=== PATIENT | female | born 1995 | race Caucasian/White ===

== ENCOUNTER 2024-10-07 17:30 | Inpatient (IN) | payer OTHER, SELFPAY ==
[2024-10-07] VITALS (44 sets, daily range): BP systolic 118–163; BP diastolic 62–104; PULSE 77–118; TEMP 36.6–37; O2SAT 97–99; BMI 28.4
--- NOTE | ~2024-10-07 | US_ITS ---
EXAMINATION: US pelvic limited DATE: 10/08/2024 09:21 INDICATION: Vaginal bleeding with concern for retained products of conception TECHNIQUE: Multiple transabdominal sonographic images of the pelvis were obtained. COMPARISON: None. FINDINGS: The uterus measures >19.5 cm in length and measures 9.4 x 13.4 cm. The endometrial complex and is ma rkedly thickened measuring up to 4.7 cm caudally at the lower uterine segment and caudal aspect of th e uterine body with heterogeneous internal echogenicity with coarsened echotexture without evident in ternal vascular flow on color Doppler. The endometrial complex appears less thickened at the fundus b ut in regions particularly on the anterior fundus with ill-defined margins. The bilateral ovaries are not visualized. There is a small amount of anechoic free fluid in the pelvis. IMPRESSION: 1. Enlarged post gravid uterus with thickened endometrial complex containing material with heterogene ous echogenicity but without internal vascular flow on color Doppler most likely representing clot al though differential would include retained products of conception. Reviewed, dictated and finalized at location A. IMPRESSION: 1. Enlarged post gravid uterus with thickened endometrial complex containing ma terial with heterogeneous echogenicity but without internal vascular flow on co willi Doppler most likely representing clot although differential would include r etained products of conception.
[2024-10-07 18:46] LABS: OBXCEM ROM Plus Positive (Negative)
--- NOTE | 2024-10-07 19:09 | LDADM ---
This patient, Elza Justice, was admitted to Labor/Delivery/Recovery 107 on 10/07/24 at 17:30. Plans for labor, pain management and were discussed with patient. Patient/family oriented to hospital policies and general routines including ID bracelet, bed and alarms, visiting hours, pain management, procedures, bathroom and other care routines, personal items, smoking policy, room service/diet and guest tray routines, security routines, and visiting hours. Patient/Family are encouraged to report perceived risks to care and to ask questions if they do not understand what they are told or what they should do. See OBIX for further documentation.
[2024-10-07 19:12] LABS: Hematocrit 34.3 % (37.0-47.0); Hemoglobin 12.1 g/dL (12.0-15.0); Immature Granulocyte Percent A 0.9 % (0-0.5); Lymphocytes Absolute Auto 1.91 K/mm3 (0.9-3.2); Mean Corpuscular HGB Conc 35.3 g/dl (32-36); Mean Corpuscular Hemoglobin 34.2 pg (26-34); Mean Corpuscular Volume 96.9 fl (80-100); Nucleated Red Blood Cells Absolute Auto 0.000 K/mm3 (0.0-0.012); Nucleated Red Blood Cells Perc 0.0 % (0.0-0.2); Platelet Count Result 157 k/mm3 (150-375); Red Blood Count 3.54 M/mm3 (4.2-5.4); White Blood Count 7.6 K/mm3 (4.5-10.0)
[2024-10-07] MEDS: AMPICILLIN SODIUM 2 GM in SODIUM CHLORIDE 0.9% IV 100 ML 200 ML IVPB (20:04)
[2024-10-07] MEDS: LACTATED RINGERS 1,000 ML 125 ML IV CONT ×2 (20:04→22:52)
[2024-10-07 20:07] LABS: HIV 1/2 Ab P24 Ag Result Negative (Negative)
--- NOTE | 2024-10-07 20:08 | PM.IMHP ---
H&P: HPI History of Present Illness Date/Time: 10/07/24 20:08 Chief Complaint: Rupture membranes Narrative: 28-year-old 3 para 0 whose last menstrual period was 02/05/2024, EDC is 11/11/2024 presents at 35 and half weeks gestation ruptured membranes. Group B strep screen is unknown. She had a normal diabetic screen in the had been uncomplicated prior Review of Systems Review of Systems: All systems reviewed & are unremarkable except as noted in HPI and below PMFSH Social History Social History Smoking status: Never smoker Second hand tobacco smoke exposure: No Do You Feel Safe in your Home?: Yes Lack of Transportation: No Lack of Food: Never True Current Housing: I Have Housing Concerned About Future Housing: No Difficulty Paying Gas/Electric Bills: No Difficulty Paying for Meds: No Currently Unemployed: YES Education: Master's Degree or Higher Difficulty w/ Childcare or Family Care: No Spiritual care concerns: No Meds Home Medications and Allergies Allergies Allergy/AdvReac Type Severity Reaction Status Date / Time No Known Allergies Allergy Verified 10/07/24 19:40 Vital Signs Vital Signs - 24 hr 10/07/24 18:26 10/07/24 18:30 10/07/24 18:45 Pulse Rate 116 H 87 102 H Blood Pressure 139/92 H 134/82 139/82 10/07/24 19:00 10/07/24 19:15 10/07/24 19:31 Pulse Rate 96 91 83 Blood Pressure 128/78 124/79 124/75 10/07/24 19:45 Pulse Rate 103 H Blood Pressure 132/92 H Exam Const: General: cooperative, healthy appearing and comfortable Nutritional Appearance: average body habitus Orientation/consciousness: oriented to person, oriented to place and oriented to time HENMT: Head: normal to inspection Resp: Effort & Inspection: normal respiratory effort Cardio: Rate: regular rate Rhythm: regular rhythm Heart sounds: S1 normal heart sound present and S2 normal heart sound present GI: Inspection: normal to inspection (Soft gravid uterus) : External Female Exam: normal external appearance Speculum Exam - Vagina: normal appearance of the vagina Speculum Exam - Cervix: normal appearance of the cervix (Cervix 1 thick. Gross rupture of fluid. FHTs reassuring) H&P: Results Labs Labs: Short CBC 10/07/24 Range/Units 19:06 WBC 7.6 (4.5-10.0) K/mm3 Hgb 12.1 (12.0-15.0) g/dL Hct 34.3 L (37.0-47.0) % Plt Count 157 (150-375) k/mm3 Assessment and Plan Assessment and plan (1) premature rupture of membranes: Code(s): O42.919 - premature rupture of membranes, unspecified as to length of time between rupture and onset of labor, unspecified trimester Status: Acute Plan Spontaneous vaginal delivery expected. She will undergo group B strep prophylaxis for unknown state. She is an epidural candidate chart calculator will be made aware of her state Pitocin has begun
[2024-10-07] MEDS: OXYTOCIN 30 UNITS/NS 500 ML 30 UNITS/500 ML BAG IV CONT (20:10)
[2024-10-07 20:12] LABS: Syphilis IgG/IgM Antibody Non-Reactive (Nonreactive)
--- NOTE | 2024-10-07 22:25 | P.PNAN_ITS ---
Anes - Eval Pre Procedure Procedure: labor epidural Date/Time: 10/07/24 22:25 Surgeon: myrna Preop Diagnosis: pain during labor Pre Op Diagnosis: labor Patient Data Age: 28 Gender: F Height: 1.68 m Weight: 80 kg Last Vital Signs Temp 37.0 C 10/07/24 22:00 Pulse 96 10/07/24 22:15 BP 129/82 10/07/24 22:15 Pulse Ox 99 10/07/24 22:23 Allergies Allergy/AdvReac Type Severity Reaction Status Date / Time No Known Allergies Allergy Verified 10/07/24 19:40 Laboratory Tests 10/07/24 10/07/24 17:50 19:06 WBC 7.6 K/mm3 (4.5-10.0) RBC 3.54 L M/mm3 (4.2-5.4) Hgb 12.1 g/dL (12.0-15.0) Hct 34.3 L % (37.0-47.0) MCV 96.9 fl (80-100) MCH 34.2 H pg (26-34) MCHC 35.3 g/dl (32-36) RDW 11.9 % (11.5-14.5) Plt Count 157 k/mm3 (150-375) MPV 12.4 H fl (7.4-10.4) Immature Gran % (Auto) 0.9 H % (0-0.5) Neut % (Auto) 64.8 % (45.5-73.1) Lymph % (Auto) 25.1 % (18.3-44.2) [place] % (Auto) 8.4 % (2.6-8.5) Eos % (Auto) 0.4 % (0-4.4) Baso % (Auto) 0.4 % (0.2-1.2) Lymph # (Auto) 1.91 K/mm3 (0.9-3.2) [place] # (Auto) 0.6 K/mm3 (0.1-0.6) Eos # (Auto) 0.0 K/mm3 (0-0.3) Baso # (Auto) 0.0 K/mm3 (0.0-0.1) Abs Immat Gran (auto) 0.07 H K/mm3 (0.00-0.031) Absolute Neuts (auto) 4.9 K/mm3 (1.3-6.7) Absolute Nucleated RBC 0.000 K/mm3 (0.0-0.012) Nucleated RBC % 0.0 % (0.0-0.2) Membranes Rupture Rom plus positive (Negative) Syphilis IgG/IgM Ab Non-reactive (Nonreactive) HIV 1&2 Ab/P24 Ag 4thGn Negative (Negative) Blood Type A Positive Antibody Screen Negative Patient hx anesthesia problems: none Family hx anesthesia problems: none Results Review: All pre-operative results and documents have been reviewed as part of the pre- operative evaluation. [facility] Past Medical History Medical History (Updated 10/07/24 @ 22:25 by Malia Camejo CRNA) IUP (intrauterine ), incidental Social History Social History Smoking status: Never smoker Second hand tobacco smoke exposure: No Do You Feel Safe in your Home?: Yes Lack of Transportation: No Lack of Food: Never True Current Housing: I Have Housing Concerned About Future Housing: No Difficulty Paying Gas/Electric Bills: No Difficulty Paying for Meds: No Currently Unemployed: YES Education: Master's Degree or Higher Difficulty w/ Childcare or Family Care: No Spiritual care concerns: No Exam Day of Procedure 10/07/24 22:25
[2024-10-07] MEDS: AMPICILLIN SODIUM 1 GM in SODIUM CHLORIDE 0.9% IV 50 ML 100 ML IVPB (23:30)
[2024-10-08] VITALS (175 sets, daily range): BP systolic 73–167; BP diastolic 32–139; PULSE 69–298; RESP 13–25; TEMP 36.8–39.2; O2SAT 75–100
[2024-10-08] MEDS: METHYLERGONOVINE MALEATE 0.2 MG/ML VIAL IM ×2 (01:36→05:15)
--- NOTE | 2024-10-08 01:43 | P.PCNOB_ITS ---
OB - Vaginal Delivery Note Procedure Delivery date: 10/08/24 Events: Premature Rupture of Membranes Induction method: None Delivery augmentation: Pitocin Delivery monitor: External FHT and External Uterine Episiotomy description: None Laceration Description: None Specimen: No Quantitative Blood Loss (ml): 262 Anesthesia type: Epidural Disposition: Floor Complications: No immediate complications Narrative: Patient was admitted with spontaneous rupture membranes at 35 weeks gestation. had been uncomplicated prior she was complete, she pushed delivered head spontaneously in the ROQUE position anterior posterior shoulder delivered spontaneously. Cord clamped and cut and placed in the warmer given Apgars of 9 [id number]. Cord blood was drawn. Placenta delivered intact spontaneously. 20cc of Pitocin placed IV to help firm the uterus. No tears or lacerations were noted there was some oozy bleeding she received a dose of Methergine followed by Cytotec 1000. [place] Baby Date of : 10/08/24 Time of : 01:23 Gestational Age by Date: 33 gender: Female Weight (pounds): 5 Weight (ounces): 4 presentation: vertex position: Right Occiput Anterior Placenta delivery description: Spontaneous Cord Vessel Description: 3 Vessels score one minute: 9 score five minutes: 9
--- NOTE | 2024-10-08 01:46 | P.DS_ITS ---
DS: Admitting Diagnosis Discharge Date 10/10/2024 Admitting Diagnosis rupture membranes DS: Discharge Diagnosis Discharge Diagnosis (1) premature rupture of membranes: Code(s): O42.919 - premature rupture of membranes, unspecified as to length of time between rupture and onset of labor, unspecified trimester Status: Acute (2) IUP (intrauterine ), incidental: Code(s): Z33.1 - state, incidental Status: Acute (3) PPH ( hemorrhage): Code(s): O72.1 - Other immediate hemorrhage Status: Acute (4) Anemia: Code(s): D64.9 - Anemia, unspecified Status: Acute DS: Summary Hospital Course Reason for hospitalization: Patient was admitted at 35 weeks gestation with spontaneous rupture membranes prior to term and underwent spontaneous vaginal delivery on 10/09/2019. The patient underwent suction dilatation curettage immediately secondary to heavy bleeding received 2units of blood Hospital Course: Patient's hospital course unremarkable. She remained afebrile she was up, voiding without difficulty, eating regular diet, ambulating, and generally without complaints. Time Spent with Patient Time attestation: Total time spent providing and/or coordinating discharge services: Exam Const: General: cooperative, healthy appearing and comfortable Nutritional Appearance: average body habitus Orientation/consciousness: oriented to person, oriented to place and oriented to time HENMT: Head: normal to inspection Resp: Effort & Inspection: normal respiratory effort Cardio: Rate: regular rate Rhythm: regular rhythm Heart sounds: S1 normal heart sound present and S2 normal heart sound present GI: Inspection: normal to inspection (Soft gravid uterus) : External Female Exam: normal external appearance Speculum Exam - Vagina: normal appearance of the vagina Speculum Exam - Cervix: normal appearance of the cervix (Cervix 1 thick. Gross rupture of fluid. FHTs reassur ing) DS: Data Data Completed and Pending Labs on day of discharge: Labs from last 24 hours 10/07/24 10/07/24 19:06 17:50 WBC 7.6 RBC 3.54 L Hgb 12.1 Hct 34.3 L MCV 96.9 MCH 34.2 H MCHC 35.3 RDW 11.9 Plt Count 157 MPV 12.4 H Immature Gran % (Auto) 0.9 H Neut % (Auto) 64.8 Lymph % (Auto) 25.1 [place] % (Auto) 8.4 Eos % (Auto) 0.4 Baso % (Auto) 0.4 Lymph # (Auto) 1.91 [place] # (Auto) 0.6 Eos # (Auto) 0.0 Baso # (Auto) 0.0 Abs Immat Gran (auto) 0.07 H Absolute Neuts (auto) 4.9 Absolute Nucleated RBC 0.000 Nucleated RBC % 0.0 Membranes Rupture Rom plus positive Syphilis IgG/IgM Ab Non-reactive HIV 1&2 Ab/P24 Ag 4thGn Negative Blood Type A Positive Antibody Screen Negative Discharge Plan Discharge Attending physician on discharge: Raphael Bailey Discharging Clinician: Raphael Bailey Patient Disposition: Home Activity: may shower and pelvic rest Diet: heart healthy Wound Care Instructions: follow printed instructions Patient Instructions: Antibiotic Form Patient Language: Hebrew Stand Alone Forms: General Discharge Information Follow-up/Referrals: Raphael Bailey MD [Physician] - Date of admission: 10/07/24 17:30 Primary Care Provider: UNKNOWN,DOCTOR Admitting Provider: Raphael Bailey Attending physician on admission: Raphael Bailey Condition: Stable
[2024-10-08] MEDS: OXYTOCIN 30 UNITS/NS 500 ML 30 UNITS/500 ML BAG 999 UNITS IV CONT (01:55)
[2024-10-08] MEDS: LACTATED RINGERS 1,000 ML 999 ML IV CONT (01:56)
[2024-10-08] MEDS: CARBOPROST TROMETHAMINE 250 MCG/ML AMPUL IM (01:58)
[2024-10-08] MEDS: ONDANSETRON INJ 4 MG/2 ML VIAL IV PUSH (02:05)
[2024-10-08 02:11] LABS: Hematocrit 32.9 % (37.0-47.0); Hemoglobin 11.4 g/dL (12.0-15.0); Immature Granulocyte Percent A 0.8 % (0-0.5); Lymphocytes Absolute Auto 1.81 K/mm3 (0.9-3.2); Mean Corpuscular HGB Conc 34.7 g/dl (32-36); Mean Corpuscular Hemoglobin 33.9 pg (26-34); Mean Corpuscular Volume 97.9 fl (80-100); Nucleated Red Blood Cells Absolute Auto 0.000 K/mm3 (0.0-0.012); Nucleated Red Blood Cells Perc 0.0 % (0.0-0.2); Platelet Count Result 145 k/mm3 (150-375); Red Blood Count 3.36 M/mm3 (4.2-5.4); White Blood Count 12.6 K/mm3 (4.5-10.0)
[2024-10-08 02:22] LABS: Alanine Aminotransferase 24 U/L (6-35); Albumin Level 3.1 g/dL (3.5-5.1); Alkaline Phosphatase 101 U/L (38-126); Anion Gap 7 mmol/L (4-12); Aspartate Amino Transferase 31 U/L (14-36); Bilirubin,Total 0.4 mg/dL (0.2-1.3); Blood Urea Nitrogen 12 mg/dL (7-17); Calcium 8.3 mg/dL (8.4-10.2); Carbon Dioxide 18 mmol/L (22-30); Chloride 107 mmol/L (98-107); Estimated CRCL calculation 94 ml/min; Estimated Glomerular Filt Rate > 60; Glucose 87 mg/dL (65-110); Potassium 3.7 mmol/L (3.4-5.0); Sodium 132 mmol/L (137-145); Total Protein 5.6 g/dL (6.3-8.2)
--- NOTE | 2024-10-08 02:22 | WPDHPUPDATE1 ---
History and Physical Update Update Date/Time: 10/08/24 02:22 History and Physical has been reviewed, including an updated exam of the patient. There are NO changes in the patient's condition. Risks, benefits, and alternatives have been discussed and questions answered. Patient agrees to proceed with procedure. Patient said episode with excessive bleeding. She has been treated with Methergine side attack and Hemabate ultrasound shows what appears to retained placenta. Packing has been placed in blood losses 1355 at this point. She will undergo exam under anesthesia and suction dilatation curettage 2units of blood been or stat hemoglobin Monocryl and coags pending.
[2024-10-08 02:23] LABS: INR 1.0; Prothrombin Time 12.7 Seconds (11.1-14.7)
[2024-10-08 02:24] LABS: Fibrinogen 273 mg/dl (215-510); Partial Thromboplastin Time 24.8 Seconds (22.3-36.8)
[2024-10-08] MEDS: OXYTOCIN 30 UNITS/NS 500 ML 30 UNITS/500 ML BAG 125 UNITS IV CONT (02:26)
--- NOTE | 2024-10-08 02:46 | P.PNAN_ITS ---
Anes - Eval Pre Procedure Procedure: Operation Date: 10/08/24 03:00 Proposed Procedures p D&C Suction and Sharp - Raphael Brooks MD Date/Time: 10/08/24 02:46 Pre Op Diagnosis: labor Patient Data Age: 28 Gender: F Height: 1.68 m Weight: 80 kg Last Vital Signs Temp 36.8 C 10/08/24 02:38 Pulse 154 H 10/08/24 02:43 Resp 25 H 10/08/24 02:38 BP 108/47 L 10/08/24 02:43 Pulse Ox 81 L 10/08/24 02:46 Allergies Allergy/AdvReac Type Severity Reaction Status Date / Time No Known Allergies Allergy Verified 10/07/24 19:40 Laboratory Tests 10/07/24 10/07/24 10/08/24 17:50 19:06 01:59 WBC 7.6 K/mm3 12.6 H K/mm3 (4.5-10.0) (4.5-10.0) RBC 3.54 L M/mm3 3.36 L M/mm3 (4.2-5.4) (4.2-5.4) Hgb 12.1 g/dL 11.4 L g/dL (12.0-15.0) (12.0-15.0) Hct 34.3 L % 32.9 L % (37.0-47.0) (37.0-47.0) MCV 96.9 fl 97.9 fl (80-100) (80-100) MCH 34.2 H pg 33.9 pg (26-34) (26-34) MCHC 35.3 g/dl 34.7 g/dl (32-36) (32-36) RDW 11.9 % 11.8 % (11.5-14.5) (11.5-14.5) Plt Count 157 k/mm3 145 L k/mm3 (150-375) (150-375) MPV 12.4 H fl 12.0 H fl (7.4-10.4) (7.4-10.4) Immature Gran % (Auto) 0.9 H % 0.8 H % (0-0.5) (0-0.5) Neut % (Auto) 64.8 % 78.4 H % (45.5-73.1) (45.5-73.1) Lymph % (Auto) 25.1 % 14.4 L % (18.3-44.2) (18.3-44.2) [place] % (Auto) 8.4 % 5.9 % (2.6-8.5) (2.6-8.5) Eos % (Auto) 0.4 % 0.2 % (0-4.4) (0-4.4) Baso % (Auto) 0.4 % 0.3 % (0.2-1.2) (0.2-1.2) Lymph # (Auto) 1.91 K/mm3 1.81 K/mm3 (0.9-3.2) (0.9-3.2) [place] # (Auto) 0.6 K/mm3 0.7 H K/mm3 (0.1-0.6) (0.1-0.6) Eos # (Auto) 0.0 K/mm3 0.0 K/mm3 (0-0.3) (0-0.3) Baso # (Auto) 0.0 K/mm3 0.0 K/mm3 (0.0-0.1) (0.0-0.1) Abs Immat Gran (auto) 0.07 H K/mm3 0.10 H K/mm3 (0.00-0.031) (0.00-0.031) Absolute Neuts (auto) 4.9 K/mm3 9.9 H K/mm3 (1.3-6.7) (1.3-6.7) Absolute Nucleated RBC 0.000 K/mm3 0.000 K/mm3 (0.0-0.012) (0.0-0.012) Nucleated RBC % 0.0 % 0.0 % (0.0-0.2) (0.0-0.2) PT 12.7 Seconds (11.1-14.7) INR 1.0 APTT 24.8 Seconds (22.3-36.8) Fibrinogen 273 mg/dl (215-510) D-Dimer 1.31 H ug/mL (<0.48) Sodium 132 L mmol/L (137-145) Potassium 3.7 mmol/L (3.4-5.0) Chloride 107 mmol/L (98-107) Carbon Dioxide 18 L mmol/L (22-30) Anion Gap 7 mmol/L (4-12) BUN 12 mg/dL (7-17) Creatinine 0.81 mg/dL (0.7-1.0) Estim Creat Clear Calc 94 ml/min Estimated GFR > 60 (59 - ) Glucose 87 mg/dL (65-110) Calcium 8.3 L mg/dL (8.4-10.2) Total Bilirubin 0.4 mg/dL (0.2-1.3) AST 31 U/L (14-36) ALT 24 U/L (6-35) Alkaline Phosphatase 101 U/L (38-126) Total Protein 5.6 L g/dL (6.3-8.2) Albumin 3.1 L g/dL (3.5-5.1) Membranes Rupture Rom plus positive (Negative) Syphilis IgG/IgM Ab Non-reactive (Nonreactive) HIV 1&2 Ab/P24 Ag 4thGn Negative (Negative) Blood Type A Positive Antibody Screen Negative Crossmatch See Detail Patient hx anesthesia problems: none Family hx anesthesia problems: none Results Review: All pre-operative results and documents have been reviewed as part of the pre- operative evaluation. [facility] Past Medical History Medical History (Updated 10/07/24 @ 22:25 by Malia Camejo CRNA) IUP (intrauterine ), incidental Social History Social History Smoking status: Never smoker Second hand tobacco smoke exposure: No Do You Feel Safe in your Home?: Yes Lack of Transportation: No Lack of Food: Never True Current Housing: I Have Housing Concerned About Future Housing: No Difficulty Paying Gas/Electric Bills: No Difficulty Paying for Meds: No Currently Unemployed: YES Education: Master's Degree or Higher Difficulty w/ Childcare or Family Care: No Spiritual care concerns: No Exam Day of Procedure 10/08/24 02:46 Patient weight: overweight Heart: regular rate and rhythm Lungs: clear to auscultation Airway: Mallampati scale class II Neurological: alert and oriented
--- NOTE | 2024-10-08 03:28 | W.PM.PROC2 ---
Procedure Note - Detailed Date of Procedure 10/08/24 Pre-op Diagnosis bleeding r Post-op Diagnosis Same Procedure Performed Exam under anesthesia with suction dilatation curettage Surgeon Raphael Brooks MD Anesthesia MAC Indications Small amount of retained placenta with bleeding Findings Tissue consistent with retained placenta Description of Procedure The patient had undergone spontaneous vaginal delivery and had more than 1500cc of blood loss. After obtaining informed consent she was taken back prepped and draped in normal sterile fashion placed in the dorsal lithotomy position. Under heavy sedation speculum was placed in the vagina the cervix was traversed over 360? and no tear seen a 14. Suction curette was then passed to the uterus small pieces of placenta removed. The uterus responded appropriately and was firm and bleeding ceased. Blood loss was estimated 100cc. The vagina was packed and she was watched for 12minutes post packing and no bleeding was seen and around the not packing. Urine output was beginning to the occur. She received 1unit of blood is receiving a 2nd unit as dictation is being undertaken. All sponge, needle, instrument counts were correct. There were no immediate complications Estimated Blood Loss 100 Drains No Packing No Pathology Yes Complications No immediate complications Condition Stable Disposition PACU
[2024-10-08] MEDS: LACTATED RINGERS 1,000 ML 30 ML IV CONT ×2 (03:30→07:51)
--- NOTE | 2024-10-08 03:33 | S_PTH ---
PATIENT: Elza Justice LOC: [id number] U#:[id number] AGE/SX: 28/F ROOM: 290 RE10/07/[address]: Raphael Brooks MD : 1995 BED: 00 DIS: 10/10/2024 SPEC #: [id number] RECD: 10/10/24 08:08 STATUS: MALENA REQ #: [id number] ALFONSO: 10/08/24 03:[address]: Raphael Bailey DEPT: [facility] Surgical RECD BY: Francisco Wisdom ENTERED: 10/10/24 08:08 SP TYPE: Surgical OTHR DR: UNKNOWN,DOCTOR Tissues: A - Placenta Procedures: Hematoxylin and Eosin Stain Gross and Microscopic Level 5
[2024-10-08 05:32] LABS: Hematocrit 27.2 % (37.0-47.0); Hemoglobin 9.1 g/dL (12.0-15.0)
--- NOTE | 2024-10-08 06:20 | P.PNOB_ITS ---
OB - PN: Subj Subjective Date/time seen: 10/08/24 06:20 Patient comments: no complaints, pain well controlled and other (bleeding still moderate) baby status: doing well OB - PN: Obj Data Labs 10/08/24 05:18 10/08/24 01:59 Labs: Laboratory Results - last 24 hr 10/07/24 10/07/24 10/08/24 17:50 19:06 01:59 WBC 7.6 12.6 H RBC 3.54 L 3.36 L Hgb 12.1 11.4 L Hct 34.3 L 32.9 L MCV 96.9 97.9 MCH 34.2 H 33.9 MCHC 35.3 34.7 RDW 11.9 11.8 Plt Count 157 145 L MPV 12.4 H 12.0 H Immature Gran % (Auto) 0.9 H 0.8 H Neut % (Auto) 64.8 78.4 H Lymph % (Auto) 25.1 14.4 L [place] % (Auto) 8.4 5.9 Eos % (Auto) 0.4 0.2 Baso % (Auto) 0.4 0.3 Lymph # (Auto) 1.91 1.81 [place] # (Auto) 0.6 0.7 H Eos # (Auto) 0.0 0.0 Baso # (Auto) 0.0 0.0 Abs Immat Gran (auto) 0.07 H 0.10 H Absolute Neuts (auto) 4.9 9.9 H Absolute Nucleated RBC 0.000 0.000 Nucleated RBC % 0.0 0.0 PT 12.7 INR 1.0 APTT 24.8 Fibrinogen 273 D-Dimer 1.31 H Sodium 132 L Potassium 3.7 Chloride 107 Carbon Dioxide 18 L Anion Gap 7 BUN 12 Creatinine 0.81 Estim Creat Clear Calc 94 Estimated GFR > 60 Glucose 87 Calcium 8.3 L Total Bilirubin 0.4 AST 31 ALT 24 Alkaline Phosphatase 101 Total Protein 5.6 L Albumin 3.1 L Membranes Rupture Rom plus positive Syphilis IgG/IgM Ab Non-reactive HIV 1&2 Ab/P24 Ag 4thGn Negative Blood Type A Positive Antibody Screen Negative Crossmatch See Detail 10/08/24 05:18 WBC RBC Hgb 9.1 L Hct 27.2 L MCV MCH MCHC RDW Plt Count MPV Immature Gran % (Auto) Neut % (Auto) Lymph % (Auto) [place] % (Auto) Eos % (Auto) Baso % (Auto) Lymph # (Auto) [place] # (Auto) Eos # (Auto) Baso # (Auto) Abs Immat Gran (auto) Absolute Neuts (auto) Absolute Nucleated RBC Nucleated RBC % PT INR APTT Fibrinogen D-Dimer Sodium Potassium Chloride Carbon Dioxide Anion Gap BUN Creatinine Estim Creat Clear Calc Estimated GFR Glucose Calcium Total Bilirubin AST ALT Alkaline Phosphatase Total Protein Albumin Membranes Rupture Syphilis IgG/IgM Ab HIV 1&2 Ab/P24 Ag 4thGn Blood Type Antibody Screen Crossmatch OB - PN A/P Assessment and Plan (1) PPH ( hemorrhage): Code(s): O72.1 - Other immediate hemorrhage Status: Acute Plan check us this am Time Spent With Patient Time: Total time spent is greater than 50% in coordination of care (as documented) at patient's floor/unit and/or counseling patient: Review of Systems 2 Review of Systems: All systems reviewed & are unremarkable except as noted in HPI and below Exam 2 Const: General: cooperative, healthy appearing and comfortable Nutritional Appearance: average body habitus Orientation/consciousness: oriented to person, oriented to place and oriented to time HENMT: Head: normal to inspection Resp: Effort & Inspection: normal respiratory effort Cardio: Rate: regular rate Rhythm: regular rhythm Heart sounds: S1 normal heart sound present and S2 normal heart sound present GI: Inspection: normal to inspection (Soft gravid uterus) : External Female Exam: normal external appearance Speculum Exam - Vagina: normal appearance of the vagina Speculum Exam - Cervix: normal appearance of the cervix (Cervix 1 thick. Gross rupture of fluid. FHTs reassuring)
--- NOTE | 2024-10-08 07:00 | PC.NURSE ---
TOTAL QBL ENTERED INCORRECTLY- TOTAL AMOUNT 1670 ML FOR VAGINAL DELIVERY AND RECOVERY PERIOD.
--- NOTE | 2024-10-08 09:30 | PC.NURSE ---
Patient requested assistance. Baby breastfed on the right side for 20 minutes about 2 hours ago. A glucose was taken before this feeding attempt and was WNL. Baby was awakened with talking and position change. She sticks her tongue out and cries. We attempted in a laid back position on the left breast. Baby does not root at the breast or make any attempts to open her mouth and latch. She does not lick or nuzzle the nipple. After about 10 minutes of trying, we switched to the right breast in a cradle hold. Mom has a small scab on the right nipple face, most likely from a shallow latch at the last feeding. Baby made one attempt to latch and suckled about 3 times before holding the nipple in her mouth and refusing to suck. Baby cries when stimulated and then instantly returns to a deep sleep state. Encouraged mother to hold baby skin to skin and to try again within an hour or if baby shows feeding cues. Infant is late and will most likely need an ineffective feeding plan started sometime today.
[2024-10-08] MEDS: IBUPROFEN 600 MG TABLET PO ×3 (10:25→23:45)
[2024-10-08 12:17] LABS: Hematocrit 25.5 % (37.0-47.0); Hemoglobin 8.7 g/dL (12.0-15.0)
[2024-10-08] MEDS: WITCH HAZEL 40 PADS 1 PAD TOPICAL (18:30)
[2024-10-08] MEDS: BENZOCAINE 20% AER SPR (*SP) 56 GM CAN 1 SPRAY TOPICAL (18:30)
[2024-10-08] MEDS: ACETAMINOPHEN 325 MG TABLET 650 MG PO (23:45)
[2024-10-09 05:04] LABS: Hematocrit 22.0 % (37.0-47.0); Hemoglobin 7.2 g/dL (12.0-15.0)
[2024-10-09 05:16] VITALS: BP 94/57; PULSE 59; RESP 14; TEMP 36.7; O2SAT 100
--- NOTE | 2024-10-09 07:21 | P.PNOB_ITS ---
OB - PN: Subj Subjective Date/time seen: 10/09/24 07:21 Patient comments: no complaints, pain well controlled and tolerating diet [place] baby status: doing well OB - PN: Obj Data Labs 10/09/24 04:49 10/08/24 01:59 Labs: Laboratory Results - last 24 hr 10/08/24 10/09/24 12:09 04:49 Hgb 8.7 L 7.2 L Hct 25.5 L 22.0 L Imaging Radiologist's impression: Impressions Pelvis Ultrasound 10/08/24 09:22 IMPRESSION: 1. Enlarged post gravid uterus with thickened endometrial complex containing material with heterogeneous echogenicity but without internal vascular flow on color Doppler most likely representing clot although differential would include retained products of conception. OB - PN A/P Assessment and Plan (1) premature rupture of membranes: Code(s): O42.919 - premature rupture of membranes, unspecified as to length of time between rupture and onset of labor, unspecified trimester Status: Acute (2) PPH ( hemorrhage): Code(s): O72.1 - Other immediate hemorrhage Status: Acute (3) Anemia: Code(s): D64.9 - Anemia, unspecified Status: Acute Plan continue iron Time Spent With Patient Time: Total time spent is greater than 50% in coordination of care (as documented) at patient's floor/unit and/or counseling patient: Review of Systems 2 Review of Systems: All systems reviewed & are unremarkable except as noted in HPI and below Exam 2 Const: General: cooperative, healthy appearing and comfortable Nutritional Appearance: average body habitus Orientation/consciousness: oriented to person, oriented to place and oriented to time HENMT: Head: normal to inspection Resp: Effort & Inspection: normal respiratory effort Cardio: Rate: regular rate Rhythm: regular rhythm Heart sounds: S1 normal heart sound present and S2 normal heart sound present GI: Inspection: normal to inspection (Soft gravid uterus) : External Female Exam: normal external appearance Speculum Exam - Vagina: normal appearance of the vagina Speculum Exam - Cervix: normal appearance of the cervix (Cervix 1 thick. Gross rupture of fluid. FHTs reassuring)
--- NOTE | 2024-10-09 09:54 | WPDANESPN ---
Anes - Prog Note Post-Op Date/Time: 10/09/24 09:54 Cardiovascular status: normal Respiratory status: normal Airway patency: baseline Mental status: baseline Post-Op hydration status: normal Vital Signs: Last Vital Signs Temp 36.7 C 10/09/24 05:16 Pulse 59 L 10/09/24 05:16 Resp 14 10/09/24 05:16 BP 94/57 L 10/09/24 05:16 Pulse Ox 100 10/09/24 05:16 O2 Del Method Room Air 10/08/24 04:30 O2 Flow Rate 10 10/08/24 03:45 Pain Score (VAS): 1 I/O: Intake & Output 10/08/24 10/09/24 10/09/24 23:59 07:59 15:59 Intake Total 350 Output Total 1400 Balance -1050 Laboratory Tests 10/09/24 04:49 10/08/24 01:59 10/08/24 10/09/24 12:09 04:49 Hgb 8.7 L 7.2 L Hct 25.5 L 22.0 L Post-procedural complaints: none Patient Feedback: Patient satisfied with anesthetic care.
[2024-10-09 10:00] VITALS: BP 123/71; PULSE 95; RESP 16; TEMP 36.9; O2SAT 98
[2024-10-09] MEDS: ACETAMINOPHEN 325 MG TABLET 650 MG PO ×3 (10:41→23:20)
[2024-10-09] MEDS: MULTIVIT/MIN/PREN/FOL AC/IRON TABLET 1 TAB PO (10:42)
[2024-10-09] MEDS: IBUPROFEN 600 MG TABLET PO ×3 (10:42→23:20)
[2024-10-09] MEDS: DOCUSATE SODIUM 100 MG CAPSULE PO ×2 (10:44→16:17)
[2024-10-09] MEDS: WITCH HAZEL 40 PADS 1 PAD TOPICAL (16:15)
[2024-10-09 19:32] VITALS: BP 121/65; PULSE 87; RESP 16; TEMP 36.6; O2SAT 98
--- NOTE | 2024-10-10 06:19 | P.PNOB_ITS ---
OB - PN: Subj Subjective Date/time seen: 10/10/24 06:19 Patient comments: no complaints, pain well controlled and tolerating diet [place] baby status: doing well OB - PN: Obj Data Labs 10/09/24 04:49 10/08/24 01:59 OB - PN A/P Assessment and Plan (1) premature rupture of membranes: Code(s): O42.919 - premature rupture of membranes, unspecified as to length of time between rupture and onset of labor, unspecified trimester Status: Acute (2) IUP (intrauterine ), incidental: Code(s): Z33.1 - state, incidental Status: Acute (3) PPH ( hemorrhage): Code(s): O72.1 - Other immediate hemorrhage Status: Acute (4) Anemia: Code(s): D64.9 - Anemia, unspecified Status: Acute Plan home on iron Time Spent With Patient Time: Total time spent is greater than 50% in coordination of care (as documented) at patient's floor/unit and/or counseling patient: Review of Systems 2 Review of Systems: All systems reviewed & are unremarkable except as noted in HPI and below Exam 2 Const: General: cooperative, healthy appearing and comfortable Nutritional Appearance: average body habitus Orientation/consciousness: oriented to person, oriented to place and oriented to time HENMT: Head: normal to inspection Resp: Effort & Inspection: normal respiratory effort Cardio: Rate: regular rate Rhythm: regular rhythm Heart sounds: S1 normal heart sound present and S2 normal heart sound present GI: Inspection: normal to inspection (Soft gravid uterus) : External Female Exam: normal external appearance Speculum Exam - Vagina: normal appearance of the vagina Speculum Exam - Cervix: normal appearance of the cervix (Cervix 1 thick. Gross rupture of fluid. FHTs reassuring)
[2024-10-10 07:30] VITALS: BP 118/75; PULSE 104; RESP 16; TEMP 36.9; O2SAT 97
[2024-10-10] MEDS: DOCUSATE SODIUM 100 MG CAPSULE PO (07:44)
[2024-10-10] MEDS: IBUPROFEN 600 MG TABLET PO (07:44)
[2024-10-10] MEDS: ACETAMINOPHEN 325 MG TABLET 650 MG PO (07:44)
[2024-10-10] MEDS: MULTIVIT/MIN/PREN/FOL AC/IRON TABLET 1 TAB PO (07:45)
--- NOTE | 2024-10-10 09:45 | PC.NURSE ---
Met with patient regarding needs. She states that infant has breastfed well so far, latches easily, and nurses at both breasts each feeding. Mother chose to supplement after twice last night due to seeming unsatisfied. We discussed that infants born late may need additional assistance stimulating the breast and that pumping may be indicated. Mom feels that baby has been nursing efficiently. We also discussed the need to pump if there is continued supplementation today to increase breast stimulation. Patient verbalized understanding and states that she will call out at the next feeding for latch assessment.
--- NOTE | 2024-10-10 10:50 | PC.NURSE ---
Patient called out for a latch check. When I entered the room, baby was not latched. Mom said she had fed for 5-10 minutes on the left breast and then baby got sleepy. Mom did a great job waking baby and latching again. Baby has a wide gape and is able to take a mouthful of breast tissue. Mother denies having nipple pain, but does have some bruising on the areola and her nipple appears to be excoriated. Baby was not very eager when placed back at breast and only suckled for a short time. No swallows noted. Baby does have dried milk around her mouth and mom expresses drops of colostrum. Discussed supplementation again with mother. Additional nutrients may be required due to infant's gestational age. No order currently from the lens blocker for required supplementation. Primary RN updated.
[2024-10-12 09:35] VITALS: BP 130/72; PULSE 97; RESP 18; TEMP 37; O2SAT 100
== END 2024-10-10 12:20 | disposition home or self-care (01) | DRG 796 ==
LOC: ANHLDR 10-08 01:48 → ANHOB2 10-08 16:59
PROVIDERS: Admitting Provider Obstetrics & Gynecology; Visit Provider Obstetrics & Gynecology
PROC: 10E0XZZ Delivery of Products of Conception, External Approach (ICD-10-PCS; principal; 2024-10-08 03:00)
DX: O42.013 Preterm premature rupture of membranes, onset of labor within 24 hours of rupture, third trimester (principal); O60.14X0 Preterm labor third trimester with preterm delivery third trimester, not applicable or unspecified; Z37.0 Single live birth; O72.2 Delayed and secondary postpartum hemorrhage; Z3A.35 35 weeks gestation of pregnancy; O90.81 Anemia of the puerperium; D64.9 Anemia, unspecified
CPT/HCPCS: 36415; 36430; 76857; 80053; 84112; 85014; 85018; 85025; 85380; 85384; 85610; 85730; 86593; 86703; 86850; 86900; 86901; 86923; 88307; A9270; G0432; J0290; J2175; J2210; J2250; J2405; J2590; J2795; J3010; J7120; P9016